=== PATIENT | female | born 1960 | race Caucasian/White ===

== ENCOUNTER 2017-03-23 16:21 | Emergency (ER) | payer MEDICAID, OTHER ==
[~2017-03-23] VITALS: Ht 162.6 cm; Wt 62.0 kg
[2017-03-23 16:45] VITALS: BP 120/82
[2017-03-23] MEDS ORDERED: SILVER SULF. CRM 1% , 25GM TP ONE (17:00)
[2017-03-23] MEDS ORDERED: BACITRACIN ZINC OINT 500U/GM, 0.9 GM ONE (17:12)
[2017-03-23] MEDS ORDERED: SILVER SULF. CRM 1% , 25GM ONE (17:13)
== END 2017-03-23 17:43 | disposition home or self-care (01) ==
LOC: ED 17:30
DX: T23.251A Burn of second degree of right palm, initial encounter (principal); T23.252A Burn of second degree of left palm, initial encounter; T31.0 Burns involving less than 10% of body surface; X08.8XXA Exposure to other specified smoke, fire and flames, initial encounter; Y93.89 Activity, other specified; Y92.89 Other specified places as the place of occurrence of the external cause; Y99.8 Other external cause status
CPT/HCPCS: 16020

== ENCOUNTER 2017-08-03 18:04 | Emergency (ER) | payer MEDICAID ==
[~2017-08-03] VITALS: Ht 162.6 cm; Wt 62.4 kg
[2017-08-03 18:08] VITALS: BP 125/69
[2017-08-03] MEDS ORDERED: FLUORESCEIN OPHTHALMIC 1 MG STRIP EACHEYE ONE (18:30)
[2017-08-03] MEDS ORDERED: PROPARACAINE OPHTH 0.5%, 15ML EACHEYE ONE (18:30)
[2017-08-03] MEDS ORDERED: PROPARACAINE OPHTH 0.5%, 15ML ONE (18:34)
[2017-08-03] MEDS ORDERED: FLUORESCEIN OPHTHALMIC 1 MG STRIP ONE (18:34)
[2017-08-03 19:40] LABS: BASOPHILS # (AUTO) 0.03 x10^3/uL (0-0.1); BASOPHILS % (AUTO) 1 % (0-1); EOSINOPHILS # (AUTO) 0.11 x10^3/uL (0-0.4); EOSINOPHILS % (AUTO) 2 % (1-7); HCT (SEDRATE) 41.3 % (34.6-47.8); LYMPHOCYTES # (AUTO) 2.02 x10^3/uL (1-3.4); LYMPHOCYTES % (AUTO) 37 % (22-44); MD NO; MEAN CORPUSCULAR HEMOGLOBIN 29.7 pg (27.0-34.8); MEAN CORPUSCULAR HGB CONC 33.2 g/dL (32.4-35.8); MEAN CORPUSCULAR VOLUME 89.7 fL (80-100); MEAN PLATELET VOLUME 7.9 fL (7.4-10.4); MONOCYTES # (AUTO) 0.43 x10^3/uL (0.2-0.8); MONOCYTES % (AUTO) 8 % (2-9); NEUTROPHILS # (AUTO) 2.94 x10^3/uL (1.8-6.8); NEUTROPHILS % (AUTO) 53 % (42-75); PLATELET COUNT 292 x10^3/uL (130-400); RED BLOOD COUNT 4.61 x10^6/uL (3.82-5.3); RED CELL DISTRIBUTION WIDTH 13.6 % (9.6-15.2)
[2017-08-03 19:43] LABS: ALBUMIN 4.2 g/dL (3.4-5.0); ANION GAP 5 mmol/L (5-15); C-REACTIVE PROTEIN, QUANT 0.09 mg/dL (0.02-0.49); CALCIUM 9.1 mg/dL (8.5-10.1); CHLORIDE 107 mmol/L (98-107); CREATININE 0.71 mg/dL (0.55-1.02)
[2017-08-03 20:18] LABS: SEDIMENTATION RATE 6 mm/hr (0-20)
== END 2017-08-03 21:51 | disposition home or self-care (01) ==
LOC: ED 21:45
DX: R51 Headache (principal); G43.C0 Periodic headache syndromes in child or adult, not intractable
CPT/HCPCS: 36415; 80048; 82040; 85025; 85651; 86140; 99284

== ENCOUNTER 2017-08-29 11:33 | Day surgery (SDC) | payer MEDICAID ==
[2017-08-24 14:52] VITALS: BP 113/72
[~2017-08-29] VITALS: Ht 162.6 cm; Wt 64.9 kg
[~2017-08-29 11:33] MED LIST: No meds per pt.
[2017-08-29] MEDS ORDERED: LACTATED RINGERS 1,000 ML IV SCH (12:05)
[2017-08-29 12:07] VITALS: BP 113/72
[2017-08-29] MEDS ORDERED: LIDOCAINE-MPF 1%, 2ML ONE (12:15)
[2017-08-29] MEDS ORDERED: LIDOCAINE 1%, 20ML ONE (12:23)
[2017-08-29] MEDS ORDERED: EPINEPHRINE 1 MG/ML, 1ML ONE (12:23)
[2017-08-29] MEDS ORDERED: LIDOCAINE-MPF 1%, 2ML INFIL ONE (12:30)
[2017-08-29] MEDS ORDERED: PROPOFOL 10 MG/ML, 20ML ONE (12:50)
[2017-08-29] MEDS ORDERED: MIDAZOLAM 1 MG/ML, 2ML ONE (12:50)
[2017-08-29] MEDS ORDERED: LIDOCAINE-MPF 2% ,5ML ONE (12:51)
[2017-08-29] MEDS ORDERED: CEFAZOLIN 1,000 MG ONE ×2 (13:03)
[2017-08-29] MEDS ORDERED: DEXAMETHASONE 4 MG/ML, 1ML ONE ×2 (13:10)
[2017-08-29] MEDS ORDERED: ACETAMINOPHEN 325 MG TABLET PO PRN (13:30)
[2017-08-29] MEDS ORDERED: ONDANSETRON 2MG/ML, 2ML IVPush PRN (13:30)
[2017-08-29] MEDS ORDERED: OXYcodone 5 MG/5 ML ORAL.SOL UDC PO PRN (13:30)
[2017-08-29] MEDS ORDERED: morphine SULFATE 10 MG/ML, 1ML IV PRN (13:30)
[2017-08-29] MEDS ORDERED: ONDANSETRON 2MG/ML, 2ML ONE (13:54)
[2017-08-29] MEDS ORDERED: FENTANYL PF 100 MCG/2ML ONE (13:55)
[2017-08-29] MEDS: FENTANYL PF 100 MCG/2ML IV PRN ×4 (13:57→14:35)
[2017-08-29] MEDS ORDERED: PROMETHAZINE 12.5 MG SUPP PR PRN (14:00)
[2017-08-29] MEDS ORDERED: PROMETHAZINE 25 MG/ML, 1ML IV PRN (14:00)
[2017-08-29] MEDS ORDERED: ACETAMINOPHEN 650 MG/20.3 ML UDC ONE (14:28)
[2017-08-29] MEDS ORDERED: OXYcodone 5 MG/5 ML ORAL.SOL UDC ONE (14:28)
== END 2017-08-29 16:35 ==
LOC: OUT 11:33
PROVIDERS: ATTEND Surgery
DX: M31.6 Other giant cell arteritis (principal); Z88.8 Allergy status to other drugs, medicaments and biological substances
CPT/HCPCS: 37609; 88305; J0171; J0690; J1100; J2250; J2405; J2704; J3010; J3490; J7120